=== PATIENT | female | born 1950 | race Two or more races ===

== ENCOUNTER 2018-04-26 10:45 | Outpatient (CLI) | payer OTHER ==
[~2018-04-26 10:45] MED LIST: ALLEGRA ALLERG180 MG PO; CAPTOPRIL25 MG PO; ENBREL50 MG/M1; ERYTHROMYCIN500 MG PO; LEVSIN/SL0.125 MG PO; NORTUSS-EX LIQ118 ML PO; PEPCID20 MG PO; PREDNISOLONE5 MG; PROVENTIL3 ML/2.5 M IH; TRAMADOL HCL50 MG; VITAMIN D400 UNI2
== END 2018-04-26 10:55 | disposition home or self-care (01) ==
LOC: MAMO-SONO 10:45
DX: Z12.31 Encounter for screening mammogram for malignant neoplasm of breast (principal); Z87.898 Personal history of other specified conditions; N60.11 Diffuse cystic mastopathy of right breast; N60.12 Diffuse cystic mastopathy of left breast

== ENCOUNTER 2018-07-19 11:21 | Outpatient (CLI) | payer OTHER | END 2018-07-19 11:27 | disposition home or self-care (01) | LOC: RAD 11:21 | DX: M43.22 Fusion of spine, cervical region (principal) ==

== ENCOUNTER 2019-02-14 13:50 | Outpatient (CLI) | payer OTHER | END 2019-02-14 14:10 | disposition home or self-care (01) | LOC: NUCLEAR 13:50 | DX: M81.0 Age-related osteoporosis without current pathological fracture (principal) ==

== ENCOUNTER 2022-05-05 13:46 | Outpatient (CLI) | payer OTHER | END 2022-05-05 13:49 | disposition home or self-care (01) | LOC: RAD 13:46 | PROVIDERS: ATTEND Internal Medicine Rheumatology | DX: M05.70 Rheumatoid arthritis with rheumatoid factor of unspecified site without organ or systems involvement (principal) ==

== ENCOUNTER 2022-08-11 12:50 | Outpatient (CLI) | payer OTHER | END 2022-08-11 12:55 | disposition home or self-care (01) | LOC: RAD 12:50 | PROVIDERS: ATTEND Surgery Surgery of the Hand | DX: D21.12 Benign neoplasm of connective and other soft tissue of left upper limb, including shoulder (principal); M15.0 Primary generalized (osteo)arthritis ==

== ENCOUNTER 2022-09-22 05:20 | Day surgery (SDC) | payer OTHER ==
[~2022-09-22 05:20] MED LIST changes: +ZESTRIL20 MG PO
== END 2022-09-22 12:50 | disposition home or self-care (01) ==
LOC: CIR.AMB 05:20
PROVIDERS: ATTEND Surgery Surgery of the Hand
DX: M85.642 Other cyst of bone, left hand (principal); Z20.822 Contact with and (suspected) exposure to COVID-19; Z88.0 Allergy status to penicillin; Z88.8 Allergy status to other drugs, medicaments and biological substances; I10 Essential (primary) hypertension

== ENCOUNTER 2022-11-01 12:39 | Outpatient (CLI) | payer OTHER | END 2022-11-01 12:46 | disposition home or self-care (01) | LOC: RAD 12:39 | PROVIDERS: ATTEND General Practice | DX: M06.9 Rheumatoid arthritis, unspecified (principal) ==

== ENCOUNTER 2022-12-17 12:32 | Outpatient (CLI) | payer OTHER | END 2022-12-17 12:34 | disposition home or self-care (01) | LOC: MAMO-SONO 12:32 | PROVIDERS: ATTEND General Practice | DX: Z12.31 Encounter for screening mammogram for malignant neoplasm of breast (principal) ==

== ENCOUNTER 2023-07-07 12:48 | Outpatient (CLI) | payer OTHER | END 2023-07-07 12:54 | disposition home or self-care (01) | LOC: RAD 12:48 | PROVIDERS: ATTEND General Practice | DX: M06.4 Inflammatory polyarthropathy (principal); S42.392A Other fracture of shaft of left humerus, initial encounter for closed fracture ==

== ENCOUNTER 2024-08-30 12:56 | Outpatient (CLI) | payer OTHER | END 2024-08-30 12:58 | disposition home or self-care (01) | LOC: NUCLEAR 12:56 | PROVIDERS: ATTEND General Practice | DX: M81.0 Age-related osteoporosis without current pathological fracture (principal) ==